=== PATIENT | male | born 1975 | race Caucasian/White ===

== ENCOUNTER 2016-11-17 09:21 | Day surgery (SDC) | payer BC, OTHER ==
--- OUTSIDE RECORDS SUMMARY | 2016-11-17 09:25 | XMS REPORT | Continuity of Care Document ---
:1975 Author Organization [facility] ([facility]) Address [address] [place] [address] Phone [phone] Care Team Providers Name Role Phone Mimi Washington-Physicians & Primary Care Provider [phone] Source Comments This disclosure is being made pursuant to the Care Everywhere program, applicable federal and state laws, and may not contain all informaitonavailable regarding this patient.[facility] ([facility]) Active Allergies and Adverse Reactions No Known Allergies Current Medications Prescription Sig. Disp. Refills Start Date End Date Status omeprazole 40 mg enteric 1 06/14/2016 Active coated capsule montelukast 10 mg tablet 2 07/04/2016 Active desloratadine 5 mg tablet TK 1 T PO QD 2 07/04/2016 Active naproxen sodium (ALEVE) Take 440 mg by Active 220 mg capsule mouth 2 times daily as needed. Active Problems Problem Noted Date Right elbow pain 07/08/2016 Overview: Referred for TEE by Soha Gallagher from [facility] for [facility]. Since September 1998 08/07/2013: Climbing down ladder into a water station, fell 10 feet, struck right elbow, landed on back and hit head. Denies loss of consciousness. Was able to climb ladder back up after injury. Acute right elbow swelling. Went to ER next day and had X-rays which were negative for fracture 08/08/2013. Had repeat x-rays on 08/23/2013 that still showed no fracture. There were only comments of m ild soft tissue swelling over the olecranon. Was able to continue performing all of his activities including ADLs and continued to work the days afterwards. Requested additional treatment for right elbow. Partly because he was worried that his son had an elbow injury and was told that he needed surgery. He feels that his main problem is that he gets intermittent sharp pain with direct pressure over the olecranon when turning over in bed or when resting his arm on his elbow. History of renal colic/stones in 04/2015. 07/08/2016: Dr. Mauricio examined and discussed. Overall benign examination. Slight maybe 1-2 degree extension and flexion limitation but full supination and pronation. Probable elbow contusion, no mechanical locking symptoms so would not recommend further treatment or evaluation. He can continue analgesics as needed. No evidence of nerve injury so EMG/NCS testing not likely to be helpful or related to his work injury. No ratable impairment, no need for permanent work restrictions. Encounter for assessment of work-related causation of injury 07/08/2016 Overview: Dr. Mauricio discussed. No need for further medical treatment. No ratable permanent impairment. No need for permanent restrictions. 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 Pulse 76 07/08/2016 8:47 AM STATE ATTORNEY Temperature 36.3 C (97.3 F) 07/08/2016 8:47 AM STATE ATTORNEY Respiratory Rate - - Height 1.8 m (5' 10.87") 07/08/2016 8:47 AM STATE ATTORNEY Weight 89.6 kg (197 lb 8.5 oz) 07/08/2016 8:47 AM STATE ATTORNEY Body Mass Index 27.65 07/08/2016 8:47 AM STATE ATTORNEY Oxygen Saturation - - Plan of Care Health Maintenance Due Date Last Done Comments Hepatitis B Vaccine (1 of 3 - Primary Series) 1975 Tdap Vaccine 1986 Lipid Disorder Screening 1993 MMR Vaccine 1993 Td Vaccine 1993 Pneumococcal Vaccine (1 of 1 - PPSV23) 1994 Influenza Vaccine: Seasonal (#1) 02/29/2016 Results from Last 3 Months Not on file
--- NOTE | 2016-11-17 10:06 | OR ---
Anesthesia Pre Procedure Eval Pre Procedure Evaluation: Last Vital Signs Temp 36.7 C 11/17/16 09:35 Pulse 85 11/17/16 09:35 Resp 16 11/17/16 09:35 BP 123/93 11/17/16 09:35 Pulse Ox 94 11/17/16 09:35 PRE PROCEDURE EVALUATION:: DATE: 11/17/2016 TIME: INDICATIONS: Radicular low back pain. Bulging disc L5-S1. Disc protrusion L5- S1 with left foraminal narrowing. PAST MEDICAL HISTORY: No previous epidural injections EXAM: Lungs clear and equal. Heart rate regular. Patient presents with radicular low back pain with pain radiating into his left hip and leg. There is no right-sided involvement. Procedure risks and benefits were explained to and accepted by the patient. ASSESSMENT OF MEDICAL STATUS: No contraindication to epidural injection. PLANNED PROCEDURE : Fluoroscopy-guided epidural injection at L5-S1 Home Medications: HOME MEDICATIONS Desloratadine [Clarinex] 5 mg PO DAILY 11/14/16 [Last Taken Unknown] HYDROcodone/ACETAMINOPHEN [Lortab 5-325 mg Tablet] 1 each PO Q4H PRN 11/14/16 [ Last Taken Unknown] Levocetirizine Dihydrochloride [Xyzal] 5 mg PO HS 11/14/16 [Last Taken Unknown] Montelukast Sodium [Singulair] 10 mg PO HS 11/14/16 [Last Taken Unknown] Omeprazole 40 mg PO DAILY 11/14/16 [Last Taken Unknown]
[2016-11-17] MEDS ORDERED: IOPAMIDOL 20 ML VIAL IJ ONE (10:54)
[2016-11-17] MEDS ORDERED: LIDOCAINE HCL/PF 5 ML VIAL IJ ONE (10:54)
[2016-11-17] MEDS ORDERED: DEXAMETHASONE SOD PHOSPHATE 10 MG/ML VIAL IJ ONE (10:54)
--- NOTE | 2016-11-17 11:12 | OR ---
Anesthesia Procedure Note - Anesthesia Procedure Note Narrative: Vital Signs - Last Taken Temp 36.7 C 11/17/16 09:35 Pulse 85 11/17/16 09:35 Resp 16 11/17/16 09:35 BP 123/93 11/17/16 09:35 Pulse Ox 94 11/17/16 09:35 11/17/16 11:08 ANESTHESIA PROCEDURE NOTE Date of Procedure: 11/17/2016 Time of procedure: 1045. Performed by: Atilio Mccullough CRNA Sugar Sampler: None. Preprocedure diagnosis: Radicular low back pain. Bulging disc with disc protrusion at L5-S1. Left neuroforaminal narrowing at L5-S1. Post procedure diagnosis: Same. Procedure: Epidural Steroid Injection at L5-S1. Indications: Radicular low back pain. Findings: See below. Details of the procedure: The patient was brought back to operating room #4. The patient was then placed in the prone position. Back was prepped with DuraPrep. Patient was then draped in sterile fashion. Lidocaine 1% was infiltrated to the skin and subcutaneous tissues at the level of the L5-S1 interspace. The epidural space was identified using a 20-gauge Tuohy needle with [id number] technique and fluoroscopic guidance. A total of 3 mL of Isovue-200 in the first the lateral and then AP position. Dexamethasone 10 mg + 5 mL of 1% preservative-free lidocaine was administered to the epidural space after negative aspiration for blood and CSF. The Tuohy needle was removed intact. A Band-Aid was applied to the patient's back. The patient was then placed in a supine position for 5 minutes before returning to the ambulatory surgical unit. A total of 45 seconds of fluoroscopy time was used along with 25.28 m/gy. EBL: Minimal. Fluids: N/A. Specimen: N/A. Post procedure condition: The patient tolerated the procedure well. No complications were noted. Thank you for this consultation. Atilio Mccullough CRNA
[2016-11-17 11:43] VITALS: BP 125/82
== END 2016-11-17 09:22 | disposition home or self-care (01) ==
LOC: AMB 09:21
PROVIDERS: ATTEND Family Medicine
PROC: 3E0S3BZ Introduction of Anesthetic Agent into Epidural Space, Percutaneous Approach (ICD-10-PCS; 2016-11-17)
PROC: 3E0S33Z Introduction of Anti-inflammatory into Epidural Space, Percutaneous Approach (ICD-10-PCS; principal; 2016-11-17 10:00)
DX: M51.27 Other intervertebral disc displacement, lumbosacral region (principal); M48.07 Spinal stenosis, lumbosacral region

== ENCOUNTER 2016-12-09 08:18 | Day surgery (SDC) | payer BC, OTHER ==
--- OUTSIDE RECORDS SUMMARY | 2016-12-09 08:22 | XMS REPORT | Continuity of Care Document ---
:1975 Author Organization [facility] ([facility]) Address [address] [place] [address] Phone [phone] Care Team Providers Name Role Phone Mimi Billings-Physicians & Primary Care Provider [phone] Source Comments This disclosure is being made pursuant to the Care Everywhere program, applicable federal and state laws, and may not contain all informaitonavailable regarding this patient.[facility] ([facility]) Active Allergies and Adverse Reactions No Known [...] Soha Gallagher from [facility] for [facility]. 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
--- NOTE | 2016-12-09 10:07 | OR ---
Anesthesia Pre Procedure Eval Pre Procedure Evaluation: Last Vital Signs Temp 36.2 C L 12/09/16 08:37 Pulse 62 12/09/16 08:37 Resp 16 12/09/16 08:37 BP 122/82 12/09/16 08:37 Pulse Ox 94 12/09/16 08:37 PRE PROCEDURE EVALUATION:: DATE: 12/09/2016 TIME: 10:00 INDICATIONS: Radicular low back pain. degenerative disc disease. Bulging disc at L5-S1 PAST MEDICAL HISTORY: Previous epidural injection approximately 2 weeks ago at L5-S1. Patient received pain relief for 2-3 days. EXAM: Lungs clear and equal. Heart rate regular. Patient complains of back pain radiating into left hip and left leg. ASSESSMENT OF MEDICAL STATUS: Procedure risks and benefits were explained to and accepted by the patient. No contraindication to epidural steroid injection. PLANNED PROCEDURE : Fluoroscopy guided epidural injection at L5-S1 Home Medications: HOME MEDICATIONS Desloratadine [Clarinex] 5 mg PO DAILY 11/14/16 [Last Taken Unknown] HYDROcodone/ACETAMINOPHEN [Lortab 5-325 mg Tablet] 1 each PO Q4H PRN 11/14/16 [ Last Taken Unknown] Levocetirizine Dihydrochloride [Xyzal] 5 mg PO HS 11/14/16 [Last Taken Unknown] Montelukast Sodium [Singulair] 10 mg PO HS 11/14/16 [Last Taken Unknown] Omeprazole 40 mg PO DAILY 11/14/16 [Last Taken Unknown] Aspirin/Acetaminophen/Caffeine [Excedrin Migraine Caplet] 2 each PO QID [Last Taken 12/09/16]
[2016-12-09] MEDS ORDERED: IOPAMIDOL 20 ML VIAL IJ ONE (10:20)
[2016-12-09] MEDS ORDERED: LIDOCAINE HCL/PF 5 ML VIAL IJ ONE (10:20)
[2016-12-09] MEDS ORDERED: DEXAMETHASONE SOD PHOSPHATE 10 MG/ML VIAL IJ ONE (10:20)
--- NOTE | 2016-12-09 10:30 | OR ---
Anesthesia Procedure Note - Anesthesia Procedure Note Narrative: Vital Signs - Last Taken Temp 36.2 C L 12/09/16 08:37 Pulse 55 L 12/09/16 10:15 Resp 18 12/09/16 10:15 BP 127/82 12/09/16 10:15 Pulse Ox 96 12/09/16 10:15 O2 Oxygen Delivery Method Room Air 12/09/16 10:26 ANESTHESIA PROCEDURE NOTE Date of Procedure: 12/09/2016 Time of procedure: 11:15. Performed by: Atilio Mccullough CRNA Msws: None. Preprocedure diagnosis: Radicular low back pain. Bulging disc at L5-S1.. Post procedure diagnosis: Same. Procedure: Epidural Steroid Injection at L5-S1. Indications: Radicular low back pain. Findings: See below. Details of the procedure: The patient was brought back to operating room #3. The patient was then placed in the prone position. Back was prepped with DuraPrep. Patient was then draped in sterile fashion. Lidocaine 1% was infiltrated to the skin and subcutaneous tissues at the level of the L5-S1 interspace. The epidural space was identified using a 20-gauge Tuohy needle with [id number] technique and fluoroscopic guidance. A total of 3 mL Isovue 200 contrast dye was injected and a first the AP and lateral position. Dexamethasone 10 mg + 5 mL of 1% preservative-free lidocaine was administered to the epidural space after negative aspiration for blood and CSF. The Tuohy needle was removed intact. A Band-Aid was applied to the patient's back. The patient was then placed in a[supine] position for 5 minutes before returning to the ambulatory surgical unit. A total of 21.5 seconds of fluoroscopy time was used. Total dose 10.54 m/gy. EBL: Minimal. Fluids: N/A. Specimen: N/A. Post procedure condition: The patient tolerated the procedure well. No complications were noted. Thank you for this consultation. Atilio Mccullough CRNA
[2016-12-09 11:02] VITALS: BP 137/90
== END 2016-12-09 08:19 | disposition home or self-care (01) ==
LOC: AMB 08:18
PROVIDERS: ATTEND Family Medicine
PROC: 3E0S3BZ Introduction of Anesthetic Agent into Epidural Space, Percutaneous Approach (ICD-10-PCS; 2016-12-09)
PROC: 3E0S33Z Introduction of Anti-inflammatory into Epidural Space, Percutaneous Approach (ICD-10-PCS; principal; 2016-12-09 10:05)
DX: M51.27 Other intervertebral disc displacement, lumbosacral region (principal)